=== PATIENT | female | born 1950 | race African-American/Black ===

== ENCOUNTER 2020-08-22 11:01 | Outpatient (NON) | payer MEDICARE, OTHER, SELFPAY ==
[2020-08-22 20:47] LABS: SARS-CoV-2 RNA PCR Negative
== END 2020-08-22 11:02 ==
PROVIDERS: Visit Provider Specialist
DX: Z20.828 Contact with and (suspected) exposure to other viral communicable diseases (principal)
CPT/HCPCS: 87635; C9803; U0003

== ENCOUNTER → 2022-12-17 13:18 | Outpatient (CLI) | payer MEDICARE, OTHER, SELFPAY ==
--- NOTE | ~2022-12-17 | MR_ITS ---
MRI of the lumbar spine Clinical History: Radiculopathy Technique: Axial T2-weighted images, and sagittal T1-weighted, T2-weighted, and T2 fat-sat images wer e acquired. Findings: There is no fracture or subluxation of the lumbar spine. Vertebral bodies maintain normal h eight and alignment. No suspicious bone marrow signal abnormality seen. At L1-L2, there is minimal disc bulge and mild facet arthropathy. No spinal canal stenosis. There is mild right neural foraminal narrowing. Left neural foramen preserved. At L2-L3, there is minimal disc bulge with facet arthropathy. No spinal canal stenosis. There is mini mal right neural foraminal narrowing. At L3-L4, there is minimal disc bulge with facet arthropathy. No spinal canal stenosis. Neural forami na are preserved. At L4-L5, disc bulge and facet arthropathy are present. There is probable minimal left lateral recess stenosis. There is minimal bilateral neural foraminal narrowing. At L5-S1, there is no significant disc bulge or herniation. There is facet arthropathy. No spinal can al stenosis or definite neural foraminal narrowing. Paravertebral soft tissues are unremarkable. Impression: Mild degenerative spondylitic changes, as detailed above. Reviewed, dictated and finalized at location . ING ANALYST Impression: Mild degenerative spondylitic changes, as detailed above.
== END ==
PROVIDERS: PCP Internal Medicine Geriatric Medicine; Visit Provider Nurse Practitioner Family
DX: M47.26 Other spondylosis with radiculopathy, lumbar region (principal)
CPT/HCPCS: 72148

== ENCOUNTER 2024-07-27 08:27 | Emergency (ER) | payer MEDICARE, OTHER, SELFPAY ==
--- NOTE | ~2024-07-27 | XR_ITS ---
EXAMINATION: XR knee LT min 4V DATE: 07/27/2024 09:09 INDICATION: Left knee pain post fall TECHNIQUE: Anteroposterior, 2 oblique and crosstable lateral views of the left knee were obtained COMPARISON: None. FINDINGS: Alignment is normal. No fracture. Mild joint space narrowing the medial compartment and tiny margina l osteophytes along the patella consistent with at least mild medial and patellofemoral osteoarthriti s although severity of joint space narrowing can be underestimated on nonweightbearing imaging. Small corticated heterotopic ossicle versus phlebolith in the soft tissues inferomedial to the patella. No joint effusion/layering lipohemarthrosis. Soft tissues are otherwise unremarkable. IMPRESSION: 1. Mild medial and patellofemoral osteoarthritis. No acute osseous abnormality. Reviewed, dictated and finalized at location A.
--- NOTE | 2024-07-27 08:43 | ED.LOWEXIN ---
HPI - Extremity Injury (Lower) General Chief Complaint: Extremity Injury, Lower Stated Complaint: lower extremity injury Source: patient Mode of arrival: ambulatory Limitations: no limitations History of Present Illness HPI Narrative: 74 y/o female presented for c/o pain and swelling to left knee after falling into her crawl space hole yesterday at 1500. States the right leg went into the hole, the left leg was extending behind her. Says her had to pull her out by pulling on the left leg. Pt reports pain to the medial aspect of the left knee, worse with bending the knee. Pt is ambulatory but reports pain. Used topical tylenol and ice to the site. Wearing a soft knee support. Also reports abrasion to left lateral knee which she applied neosporin and bandaid. Also reports right rib tenderness with movements and right hip bruising. Denies decreased ROM at the hips, numbness, tingling or weakness of the LEs, denies sob, wheezing. Related Data Home Medications Medication Instructions Recorded Confirmed amlodipine 5 mg tablet mg 07/27/24 linaclotide 72 mcg capsule mcg 07/27/24 (Linzess) lovastatin 20 mg tablet mg 07/27/24 Allergies Allergy/AdvReac Type Severity Reaction Status Date / Time No Known Allergies Allergy Verified 07/27/24 08:39 Review of Systems Review of Systems: CONSTITUTIONAL: Denies body aches, fever, chills CARDIOVASCULAR: Denies chest pain, palpitations, or edema. RESPIRATORY: Denies cough or dyspnea. SKIN: Reports right hip bruising and left knee abrasion MUSCULOSKELETAL: Reports left knee pain and swelling NEUROLOGIC: Denies headache, numbness, tingling, or weakness. All systems reviewed & are unremarkable except as noted in HPI and below [facility] Past Medical History Medical History (Updated 07/27/24 @ 09:22 by Tania Mills, AMELIE) Hypertension Comments At time of signature, I have reviewed and agree with nursing past medical, surgical, social and family history unless otherwise noted. Please see nursing chart for further information. There is no relevant family history pertinent to the presenting complaint Exam Narrative: GENERAL: Well-appearing NECK: Supple. Full range of motion CHEST: Speaks in full sentences. No respiratory distress. No point tenderness to right ribs. HEART: Regular rate and rhythm. Normal and equal peripheral pulses. EXTREMITIES: Patient is able to bear weight and ambulate with pain reported to the left knee. Moderate swelling to medial left knee noted, tender with palpation. The left patella is without obvious asymmetry or deformity. Patient is able to tolerate full extension, but reports pain with flexion beyond 90 degrees, and internal and external rotation. No tenderness to palpation of the patella, no effusion or ballottement. No tenderness over the infrapatellar tendon, over the proximal fibular head, or quadriceps tenderness. No erythema or warmth. Distal motor and neurovascular status intact. RLE has normal strength and sensation, normal range of motion with flexion/extension at hip. Large amount of purple ecchymosis to right posterior/lateral hip, tenderness with palpation. No open wounds, or obvious deformity; alignment normal, pulse palpable and equal bilaterally, skin warm, dry, pink. Capillary refill less than 3 seconds. SKIN: Warm, dry NEURO: Alert and oriented x3. PSYCH: Normal mood and affect Course Course Emergency Course: Patient is aware of diagnosis, understands and agrees to treatment plan. Anticipatory guidance given. Patient agrees to follow-up as directed and is aware of reasons to seek care at the emergency department. Portions of this record may have been created with voice recognition software Level of Care: Express Care Visit Vital Signs Vital signs: Vital Signs Temperature 97.5 F L 07/27/24 08:44 Pulse Rate 65 07/27/24 08:44 Respiratory Rate 16 07/27/24 08:44 Blood Pressure 137/69 07/27/24 08
[2024-07-27 08:44] VITALS: BP 137/69; PULSE 65; RESP 16; TEMP 36.4; O2SAT 100
== END 2024-07-27 09:34 | disposition home or self-care (01) ==
PROVIDERS: Emergency Provider Nurse Practitioner Family; PCP Nurse Practitioner Family
DX: M25.562 Pain in left knee (principal); S70.01XA Contusion of right hip, initial encounter; W17.2XXA Fall into hole, initial encounter; I10 Essential (primary) hypertension
CPT/HCPCS: 73564; 99213; G0463

== ENCOUNTER 2024-08-15 07:49 | Outpatient (CLI) | payer MEDICARE, OTHER, SELFPAY ==
--- NOTE | ~2024-08-15 | MR_ITS ---
EXAMINATION: MR knee LT wo con DATE: 08/15/2024 08:34 INDICATION: Acute left knee pain. TECHNIQUE: Magnetic resonance imaging (MRI) of the left knee was performed without intravenous contra st. Sequences included axial PD-weighted FS FSE, coronal PD-weighted FSE and PD-weighted FS FSE, sagi ttal PD-weighted FSE, and sagittal T2-weighted FS FSE. COMPARISON: Left knee radiographs 07/27/2024 FINDINGS: Medial compartment: Medial meniscus is normal. Medial compartment cartilage is normal. There are tiny osteophytes. Lateral compartment: Lateral meniscus is normal. There is shallow partial thickness cartilage loss of tibial condyle invol ving the posterior articular surface. The femoral cartilage is normal. There are tiny osteophytes. Patellofemoral compartment: There is deep partial-thickness cartilage loss of patellar median ridge with mild subchondral edema-l tyrell marrow signal intensity. There is full-thickness cartilage loss of patellar medial facet. There i s full-thickness cartilage loss of medial trochlea. Ligaments and tendons: The anterior and posterior cruciate ligaments are normal. There is a partial tear of medial collatera l ligament with surrounding edema (grade 2 sprain). There are changes of prior sprain of fibular karley ateral ligament characterized by thickening and increased signal intensity. The patellar tendon is no rmal. Fluid: There is mild prepatellar and superficial infrapatellar bursitis. There is a small knee joint effusio n. There is trace fluid in a Cano's cyst. IMPRESSION: 1. Mild chondrosis of lateral compartment and severe chondrosis of patellofemoral compartment. 2. Small knee joint effusion. 3. Partial tear of medial collateral ligament (grade 2 sprain). Reviewed, dictated and finalized at location A. IMPRESSION: 1. Mild chondrosis of lateral compartment and severe chondrosis of patellofemor al compartment. 2. Small knee joint effusion. 3. Partial tear of medial collateral ligament (grade 2 sprain).
== END 2024-08-15 07:50 | disposition home or self-care (01) ==
LOC: MICIMG 07:50
PROVIDERS: PCP Nurse Practitioner Family; Visit Provider Physician Assistant
DX: M25.462 Effusion, left knee (principal); S83.412D Sprain of medial collateral ligament of left knee, subsequent encounter; X58.XXXD Exposure to other specified factors, subsequent encounter
CPT/HCPCS: 73721